=== PATIENT | female | born 2005 | race Caucasian/White ===

== ENCOUNTER 2024-01-17 09:57 | Day surgery (SDC) | payer MEDICAID ==
[~2024-01-17] VITALS: Ht 162.6 cm; Wt 104.3 kg
[2024-01-17 10:30] LABS: HCG,QUAL RESULT NEGATIVE (NEGATIVE)
[2024-01-17] MEDS ORDERED: SUCCINYLCHOLINE CHLORIDE 20 MG/ML(QUELICIN) ONE (11:58)
[2024-01-17] MEDS ORDERED: LR 1,000 ML IV.SOLN IV ONE (11:58)
[2024-01-17] MEDS ORDERED: ONDANSETRON HCL 4 MG/2 ML VIAL ONE (11:58)
[2024-01-17] MEDS ORDERED: METOCLOPRAMIDE HCL 10 MG/2 ML VIAL ONE (11:58)
[2024-01-17] MEDS ORDERED: PROPOFOL 200MG/ 20ML VIAL (DIPRIVAN) IV ONE (11:58)
[2024-01-17] MEDS ORDERED: GLYCOPYRROLATE 0.2 MG/ML VIAL ONE (11:58)
[2024-01-17] MEDS ORDERED: NEOSTIGMINE METHYLSULFATE 1 MG/ML, 10 ML VIAL ONE (11:58)
[2024-01-17] MEDS ORDERED: DEXAMETHASONE SOD PHOSPHATE 4 MG/ML VIAL ONE (11:58)
[2024-01-17] MEDS ORDERED: ceFAZolin SODIUM 1 GM VIAL ONE (11:58)
[2024-01-17] MEDS ORDERED: BUPIVACAINE /PF 0.25% 10 ML VIAL INJ ONE (11:58)
[2024-01-17] MEDS ORDERED: ROCURONIUM BROMIDE 10 MG/ML (ZEMURON) ONE (11:58)
[2024-01-17] MEDS ORDERED: SEVOFLURANE 15 MIN GAS INH ONE (11:58)
[2024-01-17] MEDS ORDERED: ACETAMINOPHEN I.V. 1000 MG 100 ML IV ONE (12:00)
[2024-01-17] MEDS ORDERED: fentaNYL CITRATE/PF 100 MCG/2 ML AMP ONE ×4 (12:00→14:05)
[2024-01-17] MEDS ORDERED: MIDAZOLAM HCL 2 MG/2 ML VIAL (VERSED) ONE (12:00)
[2024-01-17] MEDS ORDERED: LR 1,000 ML IV ONE (12:30)
[2024-01-17] MEDS ORDERED: HYDROmorphone 1 MG/ML INJ. CARTRIDGE IVP PRN (12:30)
[2024-01-17] MEDS ORDERED: ONDANSETRON HCL 4 MG/2 ML VIAL IVP PRN (12:30)
[2024-01-17] MEDS: fentaNYL CITRATE/PF 100 MCG/2 ML AMP IVP PRN ×2 (13:22→14:04)
[2024-01-17 13:33] VITALS: O2SAT 95
[2024-01-17 16:39] VITALS: BP_SYST 127; PULSE 66; RESP 18
== END 2024-01-17 16:02 | disposition home or self-care (01) ==
LOC: SDS 09:57 → SMU 09:58 → SDS 16:02
PROVIDERS: ATTEND Obstetrics & Gynecology
DX: D27.0 Benign neoplasm of right ovary (principal); N83.8 Other noninflammatory disorders of ovary, fallopian tube and broad ligament; E66.01 Morbid (severe) obesity due to excess calories; Z68.39 Body mass index [BMI] 39.0-39.9, adult; Z88.0 Allergy status to penicillin
CPT/HCPCS: 87081; 58661; 84703; 88108; 88307; J2710; J3490 ×2; J0690; J1100; J2765; J3465; J2405; J2704; J0330; J3010; J7120; C1727; J0131; 88305